=== PATIENT | female | born 1955 | race Caucasian/White ===

== ENCOUNTER 2023-01-10 08:01 | Emergency (ER) | payer MEDICARE, OTHER ==
[~2023-01-10] VITALS: Ht 154 cm; Wt 74.0 kg
[2023-01-10] MEDS ORDERED: NS IV 1000 ML 1,000 ML IV STA (08:25)
[2023-01-10] MEDS ORDERED: fentaNYL INJ 100 MCG/2 ML AMP IVP ONE (08:30)
[2023-01-10] MEDS ORDERED: ONDANSETRON 4 MG/2 ML (SDV) Z0FRAN IVP ONE (08:30)
--- NOTE | 2023-01-10 08:32 | ED Abdominal Pain ---
General Chief Complaint: Abdominal/GI Problems Stated Complaint: LT SIDE PAIN | VOMITING Nursing Triage Note: PT AMB TO RM 6 PT CO OF L FLANK AND ABD PAIN STARTED AT 0530 THIS AM. PT HAS BEEN VOMITNG SINCE, PT ALSO CO OF DIARRHEA THIS AM APPROX 5-6 TIMES. PT HAS HX OF KIDNEY STONES. RATES PAIN 9/10 Source of Information: Patient Exam Limitations: No Limitations History of Present Illness Date Seen by Provider: Jan 10, 2023 Time Seen by Provider: 08:19 Initial Comments Patient is a 67-year-old female who presents to the emergency room with a chief complaint of left flank pain. It started at around 5 AM this morning. Patient states it began with nausea and vomiting followed by diarrhea and onset of left flank pain. She states that she attempted to sip on some water but it "came up". She states this pain reminds her of prior kidney stone pain. Its been years since she has had a kidney stone. She denies dysuria, urgency or frequency. She thinks her urine may have been a little "dark" yesterday. She denies any blood in her stool. She did have a colonoscopy about 2 years ago and had some polyps. She reports no fevers or chills. No chest pain or shortness of breath. She currently rates the pain a "9". She is allergic to ibuprofen and morphine as well as penicillin, ciprofloxacin. She is not in any acute dist ress clinically at this point. Her vital signs are stable. Timing/Duration: 4-6 Hours Severity/Quality: Severe, Aching Location: LUQ, LLQ Radiation: Back Associated Symptoms: Nausea/Vomiting, Other (diarrhea) Allergies and Home Medications Allergies Coded Allergies: amoxicillin (Verified Allergy, Unknown, 01/10/23) ampicillin (Verified Allergy, Unknown, 01/10/23) ciprofloxacin (Verified Allergy, Unknown, 01/10/23) ibuprofen (Verified Allergy, Unknown, 01/10/23) latex (Verified Allergy, Unknown, 01/10/23) morphine (Verified Allergy, Unknown, 01/10/23) Patient Home Medication List Home Medication List Reviewed: Yes Tamsulosin HCl (Flomax) 0.4 Mg Cap, 0.4 MG PO HS Prescribed by: CLARIBEL HDZ on 01/10/23 1008 Review of Systems Review of Systems Constitutional: see HPI EENTM: No Symptoms Reported Respiratory: No Symptoms Reported Cardiovascular: No Symptoms Reported Gastrointestinal: Abdominal Pain, Diarrhea, Nausea, Vomiting Genitourinary: No Symptoms Reported Musculoskeletal: back pain Skin: no symptoms reported Psychiatric/Neurological: No Symptoms Reported All Other Systems Reviewed Negative Unless Noted: Yes Past Vkjdynq-Jrngeb-Xxfrkn Hx Patient Social History Tobacco Use?: No Substance use?: No Alcohol Use?: No Pt feels they are or have been: No Immunizations Up To Date First/Initial COVID19 Vaccinat: YES Second COVID19 Vaccination Royal: YES Third COVID19 Vaccination Date: YES Past Medical History Surgery/Hospitalization HX: DM TYPE 2, HX PALPATIONS, GERD, FIBROMYALGIA, BILAT KNEE REPLACEMENT, GALLBLADDER, 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 oz. kg; 31.00 BMI Method: General Appearance: WD/WN, no apparent distress, obese HEENT: PERRL/EOMI Respiratory: lungs clear, normal breath sounds, no respiratory distress, no accessory muscle use Cardiovascular: regular rate, rhythm Gastrointestinal: normal bowel sounds, non tender, soft Extremities: normal range of motion, non-tender, normal inspection, no pedal edema Back: no CVA tenderness Neurologic/Psychiatric: alert, normal mood/affect, oriented x 3 Skin: normal color, warm/dry Progress/Results/Core Measures Results/Orders Lab Results Laboratory Tests Test 01/10/23 08:16 01/10/23 08:33 Range/Units White Blood Count 15.1 H 4.3-11.0 10^3/uL Red Blood Count 5.49 H 3.80-5.11 10^6/uL Hemoglobin 16.3 H 11.5-16.0 g/dL Hematocrit 49 35-52 % Mean Corpuscular Volume 89 80-99 fL Mean Corpuscular Hemoglobin 30 25-34 pg Mean Corpuscular Hemoglobin Concent 34 32-36 g/dL Red Cell Distribution Width 14.1 10.0-14.5 % Platelet Count 208 130-400 10^3/uL Mean Platelet Volume 11.1 9.0-12.2 fL Immature Granulocyte % (Auto) 1 % Neutrophils (%) (Auto) 80 H 42-75 % Lymphocytes (%) (Auto) 10 L 12-44 % Monocytes (%) (Auto) 8 0-12 % Eosinophils (%) (Auto) 1 0-10 % Basophils (%) (Auto) 1 0-10 % Neutrophils # (Auto) 12.1 H 1.8-7.8 10^3/uL Lymphocytes # (Auto) 1.5 1.0-4.0 10^3/uL Monocytes # (Auto) 1.2 H 0.0-1.0 10^3/uL Eosinophils # (Auto) 0.1 0.0-0.3 10^3/uL Basophils # (Auto) 0.1 0.0-0.1 10^3/uL Immature Granulocyte # (Auto) 0.1 0.0-0.1 10^3/uL Neutrophils % (Manual) 73 % Lymphocytes % (Manual) 15 % Monocytes % (Manual) 12 % Blood Morphology Comment NORMAL Sodium Level 137 135-145 MMOL/L Potassium Level 3.9 3.6-5.0 MMOL/L Chloride Level 102 98-107 MMOL/L Carbon Dioxide Level 20 L 21-32 MMOL/L Anion Gap 15 H 5-14 MMOL/L Blood Urea Nitrogen 16 7-18 MG/DL Creatinine 0.76 0.60-1.30 MG/DL Estimat Glomerular Filtration Rate 85 BUN/Creatinine Ratio 21 Glucose Level 237 H 70-105 MG/DL Calcium Level 9.0 8.5-10.1 MG/DL Urine Color YELLOW Urine Clarity SL CLOUDY Urine pH 5.0 5-9 Urine Specific Gobles >=1.030 1.016-1.022 Urine Protein 1+ H NEGATIVE Urine Glucose (UA) TRACE H NEGATIVE Urine Ketones NEGATIVE NEGATIVE Urine Nitrite NEGATIVE NEGATIVE Urine Bilirubin 1+ H NEGATIVE Urine Urobilinogen 0.2 < = 1.0 MG/DL Urine Leukocyte Esterase NEGATIVE NEGATIVE Urine RBC (Auto) 1+ H NEGATIVE Urine RBC 5-10 H /HPF Urine WBC 0-2 /HPF Urine Squamous Epithelial Cells 5-10 /HPF Urine Crystals PRESENT H /LPF Urine Amorphous Sediment LARGE GILBERT URATES H /LPF Urine Bacteria NEGATIVE /HPF Urine Casts NONE /LPF Urine Mucus NEGATIVE /LPF Urine Culture Indicated NO My Orders Orders - CLARIBEL HDZ MD Ed Iv/Invasive Line Start (01/10/23 08:25) Cbc With Automated Diff (01/10/23 08:25) Basic Metabolic Panel (01/10/23 08:25) Abdomen/Kub 1view (01/10/23 08:25) Ua Culture If Indicated (01/10/23 08:25) Ct Abd/Pelvis Wo(Kidney Stone) (01/10/23 08:25) Ns Iv 1000 Ml (Sodium Chloride 0.9%) (01/10/23 08:25) Ondansetron Injection (Zofran Injectio (01/10/23 08:30) Fentanyl Inj (Sublimaze Injection) (01/10/23 08:30) Manual Differential (01/10/23 08:16) Medications Given in ED Vital Signs/I&O 01/10/23 01/10/23 01/10/23 08:05 08:34 10:15 Temp 35.3 35.3 35.3 Pulse 68 70 Resp 18 18 B/P (MAP) 132/68 (89) 92/50 Pulse Ox 94 95 O2 Delivery Room Air Room Air Blood Pressure Mean: 89 Progress Progress Note : Time: 10:08 Progress Note Patient seen and evaluated by me, evaluation today includes physical exam, CBC, Chem-12, urinalysis, KUB and CT renal stone protocol. Pertinent physical exam findings well-developed well-nourished mildly obese female in no acute distress. Abdomen is slightly tender in the left flank. No involuntary guarding or rebound. Bowel sounds are present. Heart is regular, lungs are clear. No lower extremity edema. Normal mentation. Stable vital signs. Differential diagnosis based on history and physical exam, kidney stone, diverticulitis, pyelonephritis. Labs, KUB independently reviewed and interpreted by me. CT renal stone protocol read by radiologist. Patient CBC shows a white count of 15.1 with 80% segmented neutrophils. Hemoglobin 16.3 hematocrit 49 platelets of 208. Chemistry remarkable for slightly low CO2 at 20, glucose elevated at 237. Normal renal function. KUB shows no acute findings on my evaluation. Radiologist interpretation shows a stone in the area of the right kidney. CT per radiologist shows lobulated uterus with some sidewall lymphadenopathy. No ureteral stones are present. It does confirm intraparenchymal stone on the right. Her urinalysis is pertinent for 5-10 red blood cells per high-powered field. No signs of infection. Patient is treated in the emergency department with IV fentanyl, Zofran and normal saline. She has almost complete relief of her symptoms. I recommended follow-up with her primary care physician. She also likely needs to follow-up with urologist. Placing her on Flomax for a week. Patient is given return precautions and both verbal and written format. She verbalized understanding and agreement with the plan of care. All questions are sought and answered. Diagnostic Imaging Diagonstic Imaging: Xray Comments [facility]. [place], [place] NAME: SHELLEY GUNDERSON [facility] REC#: [id number] PT STATUS: REG ER : 1955 PHYSICIAN: CLARIBEL HDZ MD ADMIT DATE: 01/10/23/ER Draft Date of Exam:01/10/23 ABDOMEN/KUB 1VIEW HISTORY: Flank pain, kidney stone TECHNIQUE: Frontal view of the abdomen COMPARISON: None FINDINGS: No distended loops of bowel are seen. There is no large collection of free air on this supine view. There does appear to be a punctate stone projecting over the right kidney. No definite calculi are seen at the left kidney or along the expected course of the ureters or in the pelvis. There are degenerative changes in the spine. Cholecystectomy clips are noted. IMPRESSION: 1. Punctate calculus noted over the right kidney. 2. No bowel obstruction seen. Dictated on workstation # [id number] Dict: 01/10/2314 Trans: 01/10/23 0922 [facility] [id number] Interpreted by: FANNY COKER MD Electronically signed by: Diagonstic Imaging: CT Comments [facility]. [place], [place] NAME: SHELLEY GUNDERSON [facility] REC#: [id number] PT STATUS: REG ER : 1955 PHYSICIAN: CLARIBEL HDZ MD ADMIT DATE: 01/10/23/ER Draft Date of Exam:01/10/23 CT ABD/PELVIS WO(KIDNEY STONE) EXAMINATION: CT abdomen and pelvis without contrast. TECHNIQUE: Multiple contiguous axial images were obtained through the abdomen and pelvis without the use of intravenous contrast. All CT scans use one or more of the following dose optimizing techniques: automated exposure control, MA and/or KvP adjustment based on patient size and exam type or iterative reconstruction. HISTORY: Left flank pain COMPARISON: None available. FINDINGS: Limited views of the lower thorax are unremarkable. The liver is normal without focal lesion. There is no biliary ductal dilation. Gallbladder is absent. Pancreas is normal. Spleen is mildly enlarged. Adrenal glands are normal. There is a small nonobstructing stone in the right kidney measuring 2 mm. There are no ureteral stones. There is a phlebolith in the left gonadal vein. There is no hydronephrosis. Urinary bladder is normal. Uterus is enlarged with a lobulated contour. Bowel is normal in caliber without obstruction or inflammation. No free fluid or air. There is an indeterminate 1.2 cm left pelvic sidewall lymph node. Aorta is normal in caliber without aneurysm. There are no suspicious osseus lesions. IMPRESSION: 1. Small nonobstructing right renal stone. No ureteral stone. 2. Lobulated and enlarged uterus with an indeterminant enlarged left pelvic sidewall lymph node. Pelvic sonogram recommended. 3. Mild splenomegaly. Dictated on workstation # [id number] Dict: 01/10/23 0903 Trans: 01/10/23 0918 [facility] [id number] Interpreted by: EUFEMIA ARCHULETA MD Electronically signed by: Departure Impression Primary Impression: Renal colic on left side Additional Impressions: Hematuria Qualified Codes: R31.9 - Hematuria, unspecified Pelvic lymphadenopathy Disposition: 01 HOME, SELF-CARE Condition: Improved Departure-Patient Inst. Decision time for Depature: 10:06 Referrals: NO,LOCAL PHYSICIAN (PCP/Family) Primary Care Physician Patient Instructions: Blood in Urine (Hematuria), Adult ED, Renal Colic (DC) Add. Discharge Instructions: Take extra strength Tylenol, 2 tablets every 6 hours as needed for pain. I have also written a prescription for Flomax for the next week to increase urinary flow. Please drink plenty of fluids to stay well-hydrated. You have an abnormality on your CAT scan around your uterus with a concerning enlarged lymph node. Please call your primary care doctor's office tomorrow for a follow-up appointment. You will need a pelvic ultrasound to further look into what this lymph node is related to. If you have any worsening abdominal pain, fever, blood in your urine or any oth er emergent, concerning symptoms please return to the emergency department for reevaluation. Scripts Tamsulosin HCl (Flomax) 0.4 Mg Cap 0.4 MG PO HS for 7 Days, #7 CAP Prov: CLARIBEL HDZ MD 01/10/23 CLARIBEL HDZ MD Jan 10, 2023 08:32
[2023-01-10 08:33] LABS: BASOPHILS # (AUTO) 0.1 10^3/uL (0.0-0.1); BASOPHILS % (AUTO) 1 % (0-10); EOSINOPHILS # (AUTO) 0.1 10^3/uL (0.0-0.3); EOSINOPHILS % (AUTO) 1 % (0-10); HEMATOCRIT 49 % (35-52); HEMOGLOBIN 16.3 g/dL (11.5-16.0); LYMPHOCYTES # (AUTO) 1.5 10^3/uL (1.0-4.0); LYMPHOCYTES % (AUTO) 10 % (12-44); MEAN CORPUSCULAR HEMOGLOBIN 30 pg (25-34); MEAN CORPUSCULAR HGB CONC 34 g/dL (32-36); MEAN CORPUSCULAR VOLUME 89 fL (80-99); MEAN PLATELET VOLUME 11.1 fL (9.0-12.2); MONOCYTES # (AUTO) 1.2 10^3/uL (0.0-1.0); MONOCYTES % (AUTO) 8 % (0-12); NEUTROPHILS # (AUTO) 12.1 10^3/uL (1.8-7.8); NEUTROPHILS % (AUTO) 80 % (42-75); PLATELET COUNT 208 10^3/uL (130-400); WHITE BLOOD COUNT 15.1 10^3/uL (4.3-11.0)
[2023-01-10 08:35] LABS: POTASSIUM 3.9 MMOL/L (3.6-5.0)
[2023-01-10 08:38] LABS: BILIRUBIN,URINE 1+ (NEGATIVE); CLARITY,URINE SL CLOUDY; COLOR,URINE YELLOW; GLUCOSE, URINE (UA) TRACE (NEGATIVE); KETONES,URINE NEGATIVE (NEGATIVE); LEUKOCYTE ESTERASE ,URINE NEGATIVE (NEGATIVE); NITRITE,URINE NEGATIVE (NEGATIVE); PROTEIN,URINE 1+ (NEGATIVE)
[2023-01-10 08:40] LABS: CREATININE SERUM 0.76 MG/DL (0.60-1.30)
[2023-01-10 08:48] LABS: AMORPHOUS SEDIMENT,UR LARGE AMOR URATES /LPF; BACTERIA,URINE NEGATIVE /HPF; WBC,URINE 0-2 /HPF
[2023-01-10 08:56] LABS: LYMPHOCYTES % (MANUAL) 15 %; MONOCYTES % (MANUAL) 12 %; NEUTROPHILS % (MANUAL) 73 %; RBC MORPH NORMAL
--- NOTE | 2023-01-10 09:18 | Diagnostic Imaging Report ---
EXAMINATION: CT abdomen and pelvis without contrast. TECHNIQUE: Multiple contiguous axial images were obtained through the abdomen and pelvis without the use of intravenous contrast. All CT scans use one or more of the following dose optimizing techniques: automated exposure control, MA and/or KvP adjustment based on patient size and exam type or iterative reconstruction. HISTORY: Left flank pain COMPARISON: None available. FINDINGS: Limited views of the lower thorax are unremarkable. The liver is normal without focal lesion. There is no biliary ductal dilation. Gallbladder is absent. Pancreas is normal. Spleen is mildly enlarged. Adrenal glands are normal. There is a small nonobstructing stone in the right kidney measuring 2 mm. There are no ureteral stones. There is a phlebolith in the left gonadal vein. There is no hydronephrosis. Urinary bladder is normal. Uterus is enlarged with a lobulated contour. Bowel is normal in caliber without obstruction or inflammation. No free fluid or air. There is an indeterminate 1.2 cm left pelvic sidewall lymph node. Aorta is normal in caliber without aneurysm. There are no suspicious osseus lesions. IMPRESSION: 1. Small nonobstructing right renal stone. No ureteral stone. 2. Lobulated and enlarged uterus with an indeterminant enlarged left pelvic sidewall lymph node. Pelvic sonogram recommended. 3. Mild splenomegaly. Dictated by: Dictated on workstation # [id number]
--- NOTE | 2023-01-10 09:22 | Diagnostic Imaging Report ---
HISTORY: Flank pain, kidney stone TECHNIQUE: Frontal view of the abdomen COMPARISON: None FINDINGS: No distended loops of bowel are seen. There is no large collection of free air on this supine view. There does appear to be a punctate stone projecting over the right kidney. No definite calculi are seen at the left kidney or along the expected course of the ureters or in the pelvis. There are degenerative changes in the spine. Cholecystectomy clips are noted. IMPRESSION: 1. Punctate calculus noted over the right kidney. 2. No bowel obstruction seen. Dictated by: Dictated on workstation # [id number]
[2023-01-10] MEDS ORDERED: TMSL.4C PO (10:08)
[2023-01-10 10:15] VITALS: BP 92/50
== END 2023-01-10 10:15 | disposition home or self-care (01) ==
LOC: ER 08:04
DX: N23 Unspecified renal colic (principal); R31.9 Hematuria, unspecified; R59.0 Localized enlarged lymph nodes; E66.9 Obesity, unspecified; Z68.31 Body mass index [BMI] 31.0-31.9, adult; Z87.442 Personal history of urinary calculi; Z88.5 Allergy status to narcotic agent; Z91.040 Latex allergy status
CPT/HCPCS: 36415; 74018; 74176; 80048; 81000; 85007; 85027